=== PATIENT | female | born 1975 | race Caucasian/White ===

== ENCOUNTER → 2021-05-25 | Outpatient (CLI) | payer BC | LOC: KOH-I 09:17 | DX: M25.572 Pain in left ankle and joints of left foot (principal); S82.62XA Displaced fracture of lateral malleolus of left fibula, initial encounter for closed fracture; W19.XXXA Unspecified fall, initial encounter | CPT/HCPCS: 73610; 73630 ==

== ENCOUNTER → 2021-06-11 | Outpatient (CLI) | payer BC | LOC: KOH-I 16:08 | DX: S82.402A Unspecified fracture of shaft of left fibula, initial encounter for closed fracture (principal); S82.425A Nondisplaced transverse fracture of shaft of left fibula, initial encounter for closed fracture | CPT/HCPCS: 73610 ==

== ENCOUNTER → 2021-07-06 | Outpatient (CLI) | payer BC | LOC: KOH-I 15:49 | DX: S82.62XA Displaced fracture of lateral malleolus of left fibula, initial encounter for closed fracture (principal) | CPT/HCPCS: 73610 ==